=== PATIENT | male | born 1995 | race Caucasian/White ===

== ENCOUNTER 2020-09-15 16:46 | Outpatient (CLI) | payer BC, SELFPAY ==
--- NOTE | 2020-09-15 16:52 | ECG_ITS ---
Measurements Intervals [place] Rate: 70 P: 42 CA: 125 QRS: 84 QRSD: 92 T: 10 QT: 347 QTc: 376 Interpretive Statements SINUS RHYTHM BASELINE ARTIFACT- II, III, AVF NORMAL ECG Electronically Signed On 09-15-2020 18:09:20 CDT by Garry Bernstein D.O.
[2020-09-15 17:37] LABS: Basophils Absolute Auto 0.1 K/mm3 (0.0-0.1); Basophils Percent Auto 1.1 % (0.2-1.2); Eosinophils Absolute Auto 0.4 K/mm3 (0-0.3); Hematocrit 48.2 % (42.0-52.0); Hemoglobin 16.4 g/dL (14.0-18.0); Immature Granulocyte Absolute 0.01 K/mm3 (0.00-0.031); Immature Granulocyte Percent A 0.2 % (0-0.5); Lymphocytes Absolute Auto 2.01 K/mm3 (0.9-3.2); Mean Corpuscular Volume 88.1 fl (80-100); Mean Platelet Volume 8.9 fl (7.4-10.4); Monocytes Absolute Auto 0.6 K/mm3 (0.1-0.6); Monocytes Percent Auto 10.5 % (2.6-8.5); Neutrophils Absolute Auto 2.9 K/mm3 (1.3-6.7); Neutrophils Percent Auto 48.2 % (45.5-73.1); Platelet Count Result 460 k/mm3 (150-375); Red Blood Count 5.47 M/mm3 (4.6-6.20); Red Cell Distribution Width 12.1 % (11.5-14.5); White Blood Count 6.1 K/mm3 (4.5-10.0)
[2020-09-15 17:46] LABS: Anion Gap 8 mmol/L (8-16); Blood Urea Nitrogen 8 mg/dL (9-20); Calcium 9.7 mg/dL (8.4-10.2); Carbon Dioxide 30 mmol/L (22-30); Chloride 103 mmol/L (98-107); Estimated Glomerular Filt Rate > 60; Glucose 94 mg/dL (75-110); Potassium 4.5 mmol/L (3.4-5.0); Sodium 141 mmol/L (137-145)
== END 2020-09-15 16:47 | disposition home or self-care (01) ==
PROVIDERS: PCP Family Medicine; Visit Provider Nurse Practitioner Family
DX: R00.2 Palpitations (principal)
CPT/HCPCS: 36415; 80048; 84443; 85025; 93005

== ENCOUNTER 2020-09-21 10:33 | Outpatient (CLI) | payer BC, SELFPAY ==
--- NOTE | 2020-09-24 12:57 | WPDHOLTEREM ---
Holter/Event Monitor Holter/Event Monitor Date of procedure: 09/24/20 Holter/Event Procedure: 48 Hr Holter Monitor Indications: Palpitations Conclusion: 1. 48 hour holter monitor on 09/21/20. 2. Underlying rhythm is sinus rhythm. HR range 50-140 bpm; average HR 81 bpm. 3. There are 5 premature supraventricular complexes. No supraventricular tachycardia. 4. There are 1 premature ventricular complex and 1 ventricular triplet. No ventricular tachycardia. 5. No sinoatrial or atrioventricular blocks. No significant pauses greater than 2 seconds. 6. Patient reports symptom of heart racing which demonstrate sinus rhythm at 78 bpm.
== END 2020-09-21 10:34 | disposition home or self-care (01) ==
LOC: ANHCARD 10:35
PROVIDERS: PCP Family Medicine; Visit Provider Nurse Practitioner Family
DX: R00.2 Palpitations (principal)
CPT/HCPCS: 93225; 93226

== ENCOUNTER 2020-10-18 13:13 | Outpatient (CLI) | payer BC, SELFPAY ==
[2020-10-18 13:57] LABS: Hematocrit 46.4 % (42.0-52.0); Hemoglobin 15.7 g/dL (14.0-18.0); Mean Corpuscular HGB Conc 33.8 g/dl (32-36); Mean Corpuscular Hemoglobin 29.7 pg (26-34); Mean Corpuscular Volume 87.7 fl (80-100); Mean Platelet Volume 9.1 fl (7.4-10.4); Platelet Count Result 485 k/mm3 (150-375); Red Blood Count 5.29 M/mm3 (4.6-6.20); Red Cell Distribution Width 12.1 % (11.5-14.5); White Blood Count 6.1 K/mm3 (4.5-10.0)
== END 2020-10-18 13:14 | disposition home or self-care (01) ==
LOC: ANHLAB 13:17
PROVIDERS: PCP Family Medicine; Visit Provider Nurse Practitioner Family
DX: D69.6 Thrombocytopenia, unspecified (principal)
CPT/HCPCS: 36415; 85027

== ENCOUNTER 2020-11-26 12:15 | Outpatient (CLI) | payer BC, SELFPAY ==
[2020-11-26 12:57] LABS: Basophils Absolute Auto 0.1 K/mm3 (0.0-0.1); Basophils Percent Auto 0.8 % (0.2-1.2); Eosinophils Absolute Auto 0.3 K/mm3 (0-0.3); Eosinophils Percent Auto 4.1 % (0-4.4); Hematocrit 48.3 % (42.0-52.0); Hemoglobin 16.7 g/dL (14.0-18.0); Immature Granulocyte Absolute 0.01 K/mm3 (0.00-0.031); Immature Granulocyte Percent A 0.2 % (0-0.5); Lymphocytes Absolute Auto 1.79 K/mm3 (0.9-3.2); Lymphocytes Percent Auto 29.2 % (18.3-44.2); Mean Corpuscular HGB Conc 34.6 g/dl (32-36); Mean Corpuscular Hemoglobin 30.6 pg (26-34); Mean Corpuscular Volume 88.5 fl (80-100); Mean Platelet Volume 8.9 fl (7.4-10.4); Monocytes Absolute Auto 0.6 K/mm3 (0.1-0.6); Monocytes Percent Auto 9.8 % (2.6-8.5); Neutrophils Absolute Auto 3.4 K/mm3 (1.3-6.7); Neutrophils Percent Auto 55.9 % (45.5-73.1); Platelet Count Result 472 k/mm3 (150-375); Red Blood Count 5.46 M/mm3 (4.6-6.20); Red Cell Distribution Width 12.3 % (11.5-14.5); White Blood Count 6.1 K/mm3 (4.5-10.0)
[2020-11-26 13:18] LABS: Alanine Aminotransferase 69 U/L (4-50); Albumin Level 4.7 g/dL (3.5-5.1); Alkaline Phosphatase 66 U/L (38-126); Anion Gap 7 mmol/L (8-16); Aspartate Amino Transferase 41 U/L (17-59); Bilirubin,Total 0.6 mg/dL (0.2-1.3); Blood Urea Nitrogen 9 mg/dL (9-20); CRP < 0.5 mg/dL (<1.0); Calcium 9.9 mg/dL (8.4-10.2); Carbon Dioxide 29 mmol/L (22-30); Chloride 102 mmol/L (98-107); Estimated Glomerular Filt Rate > 60; Glucose 97 mg/dL (65-110); Potassium 4.3 mmol/L (3.4-5.0); Sodium 138 mmol/L (137-145)
[2020-11-26 13:54] LABS: Iron 116 ug/dL (49-181)
[2020-11-26 14:03] LABS: Percent Iron Saturation 36 % (20-50)
[2020-11-26 15:18] LABS: Erythrocyte Sedimentation Rate 3 mm/hr (0-20)
== END 2020-11-26 12:16 | disposition home or self-care (01) ==
LOC: ANHLAB 12:20
PROVIDERS: PCP Family Medicine; Visit Provider Internal Medicine Hematology & Oncology
DX: R79.89 Other specified abnormal findings of blood chemistry (principal)
CPT/HCPCS: 36415; 80053; 82728; 83540; 83550; 85025; 85652; 86140

== ENCOUNTER 2021-03-17 16:16 | Outpatient (CLI) | payer BC, SELFPAY ==
[2021-03-17 17:04] LABS: Basophils Absolute Auto 0.1 K/mm3 (0.0-0.1); Eosinophils Absolute Auto 0.4 K/mm3 (0-0.3); Eosinophils Percent Auto 6.9 % (0-4.4); Hematocrit 45.9 % (42.0-52.0); Hemoglobin 16.1 g/dL (14.0-18.0); Immature Granulocyte Absolute 0.01 K/mm3 (0.00-0.031); Immature Granulocyte Percent A 0.2 % (0-0.5); Lymphocytes Absolute Auto 1.95 K/mm3 (0.9-3.2); Lymphocytes Percent Auto 32.8 % (18.3-44.2); Mean Corpuscular HGB Conc 35.1 g/dl (32-36); Mean Corpuscular Volume 88.4 fl (80-100); Mean Platelet Volume 9.4 fl (7.4-10.4); Monocytes Absolute Auto 0.7 K/mm3 (0.1-0.6); Monocytes Percent Auto 11.6 % (2.6-8.5); Neutrophils Absolute Auto 2.8 K/mm3 (1.3-6.7); Neutrophils Percent Auto 47.5 % (45.5-73.1); Platelet Count Result 456 k/mm3 (150-375); Red Blood Count 5.19 M/mm3 (4.6-6.20); Red Cell Distribution Width 12.2 % (11.5-14.5); White Blood Count 5.9 K/mm3 (4.5-10.0)
[2021-03-17 17:26] LABS: Alanine Aminotransferase 40 U/L (4-50); Albumin Level 4.7 g/dL (3.5-5.1); Alkaline Phosphatase 74 U/L (38-126); Anion Gap 10 mmol/L (8-16); Aspartate Amino Transferase 36 U/L (17-59); Bilirubin,Total 0.4 mg/dL (0.2-1.3); Blood Urea Nitrogen 8 mg/dL (9-20); Calcium 9.5 mg/dL (8.4-10.2); Carbon Dioxide 27 mmol/L (22-30); Chloride 102 mmol/L (98-107); Estimated Glomerular Filt Rate > 60; Glucose 103 mg/dL (65-110); Potassium 3.9 mmol/L (3.4-5.0); Sodium 139 mmol/L (137-145)
== END 2021-03-17 16:17 | disposition home or self-care (01) ==
LOC: ANHLAB 16:19
PROVIDERS: PCP Family Medicine; Visit Provider Internal Medicine Hematology & Oncology
DX: D75.838 Other thrombocytosis (principal)
CPT/HCPCS: 36415; 80053; 85025

== ENCOUNTER 2024-01-29 10:45 | Outpatient (CLI) | payer OTHER, SELFPAY ==
[2024-01-29 11:15] LABS: Basophils Absolute Auto 0.1 K/mm3 (0.0-0.1); Basophils Percent Auto 0.8 % (0.2-1.2); Eosinophils Absolute Auto 0.3 K/mm3 (0-0.3); Eosinophils Percent Auto 3.3 % (0-4.4); Hematocrit 46.2 % (42.0-52.0); Hemoglobin 16.1 g/dL (14.0-18.0); Immature Granulocyte Absolute 0.03 K/mm3 (0.00-0.031); Immature Granulocyte Percent A 0.4 % (0-0.5); Lymphocytes Absolute Auto 1.53 K/mm3 (0.9-3.2); Lymphocytes Percent Auto 19.2 % (18.3-44.2); Mean Corpuscular HGB Conc 34.8 g/dl (32-36); Mean Corpuscular Hemoglobin 30.4 pg (26-34); Mean Corpuscular Volume 87.3 fl (80-100); Mean Platelet Volume 9.2 fl (7.4-10.4); Monocytes Absolute Auto 0.7 K/mm3 (0.1-0.6); Monocytes Percent Auto 8.5 % (2.6-8.5); Neutrophils Absolute Auto 5.4 K/mm3 (1.3-6.7); Neutrophils Percent Auto 67.8 % (45.5-73.1); Platelet Count Result 512 k/mm3 (150-375); Red Blood Count 5.29 M/mm3 (4.6-6.20)
[2024-01-29 11:35] LABS: Alanine Aminotransferase 36 U/L (6-50); Albumin Level 4.7 g/dL (3.5-5.1); Alkaline Phosphatase 69 U/L (38-126); Anion Gap 10 mmol/L (4-12); Aspartate Amino Transferase 28 U/L (17-59); Bilirubin,Total 0.6 mg/dL (0.2-1.3); Blood Urea Nitrogen 9 mg/dL (9-20); Calcium 9.2 mg/dL (8.4-10.2); Carbon Dioxide 26 mmol/L (22-30); Chloride 103 mmol/L (98-107); Cholesterol 188 mg/dL (0-200); Estimated Glomerular Filt Rate > 60; Glucose 93 mg/dL (65-110); HDL Direct 51 mg/dL; Sodium 139 mmol/L (137-145); Triglycerides 90 mg/dL (<150)
[2024-01-29 11:46] LABS: LDL Cholesterol Direct 104 mg/dL
[2024-01-29 11:58] LABS: Vitamin D 25 Hydroxy 27.5 ng/mL
[2024-01-29 12:38] LABS: Folic Acid 6.3 ng/mL (2.76->20)
== END 2024-01-29 10:46 | disposition home or self-care (01) ==
LOC: ANHLAB 10:48
PROVIDERS: PCP Family Medicine; Visit Provider Nurse Practitioner Adult Health
DX: Z00.00 Encounter for general adult medical examination without abnormal findings (principal); R00.0 Tachycardia, unspecified; R79.89 Other specified abnormal findings of blood chemistry; Z13.220 Encounter for screening for lipoid disorders; Z13.29 Encounter for screening for other suspected endocrine disorder
CPT/HCPCS: 36415; 80053; 80061; 82306; 82607; 82746; 84443; 85025

== ENCOUNTER → 2024-05-05 11:40 | Outpatient (REF) | payer OTHER, SELFPAY ==
--- OUTSIDE RECORDS SUMMARY | 2024-05-05 14:30 | XMS_ITS | Clinical Summary ---
Author Organization [facility] Address [address] [place] [address] Care Team Providers Care Auto Service Mechanic Name Role Phone Unknown, Provider Primary Care Provider Unavaila ble Source Comments [facility],non-owned Affiliates and Associated Physician Practices is amultiple site organization consisting of ambulatory clinics and hospital sitesin [place], [place], [place] and [place]. This disclosure is being madepursuant to the Care Everywhere program and may not contain all information available regarding this patient. Last updated 17.[facility] Allergies No known active allergies Medications Be aware that medications may not be up to date on this document. Always verify current medications with the patient. No known medications Social History Tobacco Use Types Packs/Day Years Used Date Smoking Tobacco: Never Sex and Gender Information Value Date Recorded Sex Assigned at Not on file Gender Identity Not on file Sexual Orientation Not on file Last Filed Vital Signs Vital Sign Reading Time Taken Comments Blood Pressure 116/60 01/17/2016 6:17 PM CDT Pulse 64 01/17/2016 6:17 PM CDT Temperature 36.9 C (98.4 F) 01/17/2016 6:17 PM CDT Respiratory Rate 16 01/17/2016 6:17 PM CDT Oxygen Saturation - - Inhaled Oxygen Concentration - - Weight 89.6 kg (197 lb 8 oz) 01/17/2016 6:17 PM CDT Height 184.2 cm (6' 0.5 ) 01/17/2016 6:17 PM CDT Body Mass Index 26.42 01/17/2016 6:17 PM CDT Plan of Treatment Health Maintenance Due Date Last Done Comments HIV SCREENING 2012 HPV VACCINE (1 - Male 3-dose series) 2012 HEPATITIS C SCREENING 11/23/2015 DTAP/TDAP/TD VACCINES (1 - Tdap) 2016 HEPATITIS B VACCINE (1 of 3 - 19+ 3-dose series) 2016 COVID-19 VACCINE (2023-2 5 season) 2023 INFLUENZA VACCINE (#1) 2023 DEPRESSION SCREENING 03/19/2024 ZOSTER VACCINE (1 of 2) 11/28/2047 HIB VACCINE Aged Out No longer eligi ble based on patient's age to complete this topic MENINGOCOCCAL (Group B) VACCINE Aged Out No longer eligible based on patient's age to complete this topic MENINGOCOCCAL VACCINE Aged Out No xochitl alan eligible based on patient's age to complete this topic PNEUMOCOCCAL VACCINE Aged Out No long er eligible based on patient's age to complete this topic Care Teams Auto Service Mechanic Relationship Specialty Start Date End Date Unknown, Provider PCP - General 01/17/16
--- OUTSIDE RECORDS SUMMARY | 2024-05-05 14:30 | XMS_ITS | Referral Summary ---
Author Organization [facility] Address [address] [place] [address] Care Team Providers Care Butter Production Supervisor Name Role Phone Unknown, Provider Primary Care Provider Unavaila ble Source Comments [facility],non-owned Affiliates and Associated Physician Practices is amultiple site organization consisting of ambulatory clinics and hospital sitesin [place], [place], [place] and [place]. This disclosure is being madepursuant to the Care Everywhere program and may not contain all information available regarding this patient. Last updated 17.[facility] Allergies No known active allergies Medications Be [...] 01/17/2016 6:17 PM CDT Plan of Treatment Not on file Care Teams Butter Production Supervisor Relationship Specialty Start Date End Date Unknown, Provider PCP - General 01/17/16
--- OUTSIDE RECORDS SUMMARY | 2024-05-05 14:30 | XMS_ITS | Clinical Summary ---
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 Family History Relation Name Status Comments Father Mother Alive Social History Tobacco Use Types Packs/Day Years Used Date Smoking Tobacco: Never Smokeless Tobacco: Never Alcohol Use Standard Drinks/Week Comments Never 0 (1 standard drink = 0.6 oz pur e alcohol) Sex and Gender Information Value Date Recorded Sex Assigned at Not on file Legal Sex Male 1:07 PM CDT Gender Identity Not on file Sexual Orientation Not on file Last Filed Vital Signs Vital Sign Reading Time Taken Comments Blood Pressure 136/80 11/26/2020 11:38 AM CDT Pulse 72 11/26/2020 11:38 AM CDT Temperature 36.9 C (98.4 F) 11/26/2020 11:38 AM CDT Respiratory Rate - - Oxygen Saturation 98% 11/26/2020 11: 38 AM CDT Inhaled Oxygen Concentration - - Weight 103.1 kg (227 lb 4.8 oz) 021 11:38 AM CDT Height 185.4 cm (6' 1 ) 11/26/2020 11:3 8 AM CDT Body Mass Index 29.99 11/26/2020 11:38 AM CDT Plan of Treatment Upcoming Encounters Date Type Department Care Team (Late st Contact Info) Description 05/21/2024 1:30 PM PRINTED CIRCUIT BOARD PREASSEMBLER Office Visit [facility] Oncology and Hematology - [place] [address] [facility] [address] [place] [address] Rigo Tamayo MD [address] [facility] [address] [place] [address] Health Maintenance Due Date Last Done Comments HPV VACCINES (1 - Male 3-dose series) 2012 DTAP/TDAP/TD VACCINES (1 - Tdap) 2016 HEPATITIS B VACCINES (1 of 3 - 19+ 3-dose series) 11/17 INFLUENZA VACCINE (#1) 2023 Insurance AETNA CHOICE POS II AETNA CHOICE POS II Care Teams Spray Dyer Relationship Specialty Start Date End Date Elian Hinton MD [address] [place] [address] PCP - General Family Practice 11/26/20
--- OUTSIDE RECORDS SUMMARY | 2024-05-05 14:30 | XMS_ITS | Patient Health Summary ---
Author Organization [facility] Address [address] [place] [address] Care Team Providers Care Pediatric Sports Medicine Specialist Name Role Phone Unknown, Provider Primary Care Provider Unavaila ble Note from [facility],non-owned Affiliates and Associated Physician Practices is amultiple site organization consisting of ambulatory clinics and hospital sitesin [place], [place], [place] and [place]. This disclosure is being madepursuant to the Care Everywhere program and may not contain all information available regarding this patient. Last updated 17.[facility] Allergies No known active allergies Medications Be [...] Mass Index 26.42 01/17/2016 6:17 PM CDT Care Teams Pediatric Sports Medicine Specialist Relationship Specialty Start Date End Date Unknown, Provider PCP - General 01/17/16
== END ==
LOC: ANHLAB 11:40
PROVIDERS: PCP Family Medicine; Visit Provider Plastic Surgery
DX: L72.0 Epidermal cyst (principal)
CPT/HCPCS: 88305

== ENCOUNTER 2024-05-21 14:29 | Outpatient (CLI) | payer OTHER, SELFPAY ==
[2024-05-21 15:20] LABS: Basophils Absolute Auto 0.1 K/mm3 (0.0-0.1); Basophils Percent Auto 0.8 % (0.2-1.2); Eosinophils Absolute Auto 0.4 K/mm3 (0-0.3); Eosinophils Percent Auto 5.9 % (0-4.4); Hematocrit 47.3 % (42.0-52.0); Hemoglobin 16.2 g/dL (14.0-18.0); Immature Granulocyte Absolute 0.01 K/mm3 (0.00-0.031); Immature Granulocyte Percent A 0.1 % (0-0.5); Lymphocytes Absolute Auto 2.07 K/mm3 (0.9-3.2); Lymphocytes Percent Auto 29.3 % (18.3-44.2); Mean Corpuscular HGB Conc 34.2 g/dl (32-36); Mean Corpuscular Hemoglobin 30.3 pg (26-34); Mean Corpuscular Volume 88.4 fl (80-100); Mean Platelet Volume 9.2 fl (7.4-10.4); Monocytes Absolute Auto 0.6 K/mm3 (0.1-0.6); Monocytes Percent Auto 8.8 % (2.6-8.5); Neutrophils Absolute Auto 3.9 K/mm3 (1.3-6.7); Neutrophils Percent Auto 55.1 % (45.5-73.1); Platelet Count Result 535 k/mm3 (150-375); Red Blood Count 5.35 M/mm3 (4.6-6.20); Red Cell Distribution Width 12.6 % (11.5-14.5); White Blood Count 7.1 K/mm3 (4.5-10.0)
[2024-05-21 16:12] LABS: Iron 112 ug/dL (49-181)
--- OUTSIDE RECORDS SUMMARY | 2024-05-21 16:13 | XMS_ITS | Referral Summary ---
Author Organization [facility] Address [address] [place] [address] Care Team Providers Care Net Architect Name Role Phone Unknown, Provider Primary Care Provider Unavaila ble Source Comments [facility],non-owned Affiliates and Associated Physician Practices is [facility] organization consisting of ambulatory clinics and hospital sitesin [place], [place] and [place]. This disclosure is being madepursuant to the Care Everywhere program and may not contain all information available regarding this patient. Last updated 17.[facility] Allergies No known active allergies Medications Be [...] of Treatment Not on file Care Teams Net Architect Relationship Specialty Start Date End Date Unknown, Provider PCP - General 01/17/16
--- OUTSIDE RECORDS SUMMARY | 2024-05-21 16:13 | XMS_ITS | Clinical Summary ---
Author Organization [facility] Address [address] [place] [address] Care Team Providers Care Photographer Model Name Role Phone Elian Hinton MD Primary Care Provider [phone] Allergies No known active allergies Medications pantoprazole (PROTONIX) 40 mg Tablet, Delayed Release (E.C.) Take 40 mg by mouth daily in the morning. 05/06/2024 Active sertraline (ZOLOFT) 50 mg tablet Take 1 Tablet by mouth daily. 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 Encounters Date Type Department Care Team Description 05/21/2024 1:30 PM LATEX THREAD MACHINE OPERATOR Office Visit [facility] Oncology and Hematology - [place] [address] [place] [phone] Rigo Tamayo MD Secondary thrombocytosis (Primary Dx); Chronic anemia from Last 3 Months Family History Relation Name Status Comments Father Mother Alive Social History Tobacco Use Types Packs/Day Years Used Date Smoking Tobacco: Never Smokeless Tobacco: Never Tobacco Cessation:Counseling Given: Not Answered Alcohol Use Standard Drinks/Week Comments Never 0 (1 standard drink = 0.6 oz pur e alcohol) Sex and Gender Information Value Date Recorded Sex Assigned at Not on file Legal Sex Male 1:07 PM CDT Gender Identity Not on file Sexual Orientation Not on file Last Filed Vital Signs Vital Sign Reading Time Taken Comments Blood Pressure 121/80 05/21/2024 1:04 PM LATEX THREAD MACHINE OPERATOR Pulse 69 05/21/2024 1:04 PM LATEX THREAD MACHINE OPERATOR Temperature 36.5 C (97.7 F) 05/21/2024 1:04 PM LATEX THREAD MACHINE OPERATOR Respiratory Rate 16 05/21/2024 1:04 PM LATEX THREAD MACHINE OPERATOR Oxygen Saturation 98% 05/21/2024 1:0 4 PM LATEX THREAD MACHINE OPERATOR Inhaled Oxygen Concentration - - Weight 116.7 kg (257 lb 3.2 oz) 05/21/2024 1:04 PM LATEX THREAD MACHINE OPERATOR Patient stated that this is the correct weight Height 185.4 cm (6' 1 ) 11/26/2020 11:3 8 AM CDT Body Mass Index 33.93 11/26/2020 11:38 AM CDT Plan of Treatment Upcoming Encounters Date Type Department Care Team (Late st Contact Info) Description 06/05/2024 4:00 PM CDT Telephone Check Up [facility] Oncology and Hematology - [place] [address] [facility] [address] [place] [address] Rigo Tamayo MD [address] [facility] [place] [address] Health Maintenance Due Date Last Done Comments HPV VACCINES (1 - Male 3-dose series) 2012 DTAP/TDAP/TD VACCINES (1 - Tdap) 2016 HEPATITIS B VACCINES (1 of 3 - 19+ 3-dose series) 11/17 INFLUENZA VACCINE (#1) 2023 Preventative Visit- Commercial 03/19/2024 Insurance AETNA CHOICE POS II AETNA CHOICE POS II Care Teams Photographer Model Relationship Specialty Start Date End Date Elian Hinton MD [address] [place] [address] PCP - General Family Practice 11/26/20
--- OUTSIDE RECORDS SUMMARY | 2024-05-21 16:13 | XMS_ITS | Patient Health Summary ---
Author Organization [facility] Address [address] [place] [address] Care Team Providers Care Pit And Auxiliaries Supervisor Name Role Phone Unknown, Provider Primary Care Provider Unavaila ble Note from [facility],non-owned Affiliates and Associated Physician Practices is amultiple site organization consisting of ambulatory clinics and hospital sitesin [place], [place], [place] and [place]. This disclosure is being madepursuant to the Care Everywhere program and may not contain all information available regarding this patient. Last updated 17.[facility] Allergies No known active allergies Medications Be [...] 26.42 01/17/2016 6:17 PM CDT Care Teams Pit And Auxiliaries Supervisor Relationship Specialty Start Date End Date Unknown, Provider PCP - General 01/17/16
--- OUTSIDE RECORDS SUMMARY | 2024-05-21 16:13 | XMS_ITS | Clinical Summary ---
Author Organization [facility] Address [address] [place] [address] Care Team Providers Care Laboratory Technology Teacher Name Role Phone Unknown, Provider Primary Care Provider Unavaila ble Source Comments [facility],non-owned Affiliates and Associated Physician Practices is amultiple site organization consisting of ambulatory clinics and hospital sitesin [place], [place], [place] and [place]. This disclosure is being madepursuant to the Care Everywhere program and may not contain all information available regarding this patient. Last updated 17.[facility] Allergies No known active allergies Medications Be [...] age to complete this topic Care Teams Laboratory Technology Teacher Relationship Specialty Start Date End Date Unknown, Provider PCP - General 01/17/16
--- OUTSIDE RECORDS SUMMARY | 2024-05-21 16:13 | XMS_ITS | Encounter Summary ---
Author Organization [facility] Address [address] [place] [address] Care Team Providers Care Thermal Cutter Helper Name Role Phone Elian Hinton MD Primary Care Provider [phone] Reason for Referral * Radiology Services (Routine) - Closed Specialty Diagnoses / Procedures Referred By Contac t Referred To Contact Diagnoses Secondary thrombocytosis Procedures US ABDOMEN COMPLETE Rigo Tamayo MD [address] [place] [phone] Phone: tel: fax: [place] [phone] Referral ID Status Reason Start Date Expiration Date V isits Requested Visits Authorized [id number] Closed ST[facility] CTS 05/21/2024 06/21/2025 1 1 Y REPAIRER * Laboratory Services (Routine) - Closed Specialty Diagnoses / Procedures Referred By Contac t Referred To Contact Diagnoses Secondary thrombocytosis Procedures [id number] MUTATION Rigo Tamayo MD [address] [place] [phone] Phone: tel: fax: Referral ID Status Reason Start Date Expiration Date Visits Re quested Visits Authorized [id number] Closed 05/21/2024 06/21/2025 1 1 Y REPAIRER Reason for Visit * Reason Comments Establish Care Encounter Details Date Type Department Care Team (Late st Contact Info) Description 05/21/2024 1:30 PM RELAY REPAIRER Office Visit [facility] Oncology and Hematology - [place] [address] [facility] [address] [place] [address] Rigo Tamayo MD [address] [facility] [address] [place] [address] Secondary thrombocytosis (Primary Dx); Chronic anemia Social History Tobacco Use Types Packs/Day Years [...] on file Sexual Orientation Not on file documented as of this encounter Last Filed Vital Signs Vital Sign Reading Time Taken Comments Blood Pressure 121/80 05/21/2024 1:04 PM RELAY REPAIRER Pulse 69 05/21/2024 1:04 PM RELAY REPAIRER Temperature 36.5 C (97.7 F) 05/21/2024 1:04 PM RELAY REPAIRER Respiratory Rate 16 05/21/2024 1:04 PM RELAY REPAIRER Oxygen Saturation 98% 05/21/2024 1:0 4 PM RELAY REPAIRER Inhaled Oxygen Concentration - - Weight 116.7 kg (257 lb 3.2 oz) 05/21/2024 1:04 PM RELAY REPAIRER Patient stated that this is the correct weight Height - - Body Mass Index 33.93 11/26/2020 11:38 AM CDT documented in this encounter Progress Notes * Rigo Tamayo MD - 05/21/2024 2:12 PM CST Hematology-oncology consult Note Requesting Physician Elian Hinton MD Primary Care Physician Elian Hinton MD Problem list Patient Active Problem List Diagnosis Code Secondary thrombocytosis D75.838 Elevated liver enzymes R74.8 Previous TREATMENT ? Measurable Disease ? Reason for Visit Reji Barrow is a 28 y.o. male who was referred for consultation for thrombocytosis. History of present illness This is a 28-year-old male who has been in good health found to have thrombocytosis initially in November 2020. He denies any bleeding and bruising. He denies any arthritis and rash. Denies any chest pain and shortness of breath. He has gained 30 pound weight in last 3 years duration. Hedenies any history of thromboembolic events including stroke and heart attack. No history of smoking. He has cyst removed from the neck about 3 weeks ago and recovering from the procedure. His labs done on January 2024 showed platelet count of 512,000. Back in November 2020 his labs showed platelet count of 485,000. He has no other new complaints. Past Medical History Past Medical History: Diagnosis Date Heart murmur Surgical History Past Surgical History: Procedure Laterality Date CYSTOURETHROSCOPY HX CIRCUMCISION HX WISDOM TEETH EXTRACTION Medications Current Outpatient Medications Medication Sig Dispense Refill pantoprazole (PROTONIX) 40 mg Tablet, Delayed Release (E.C.) Take 40 mg by mouth daily in the morning. sertraline (ZOLOFT) 50 mg tablet Take 1 Tablet by mouth daily. No current facility-administered medications for this visit. Allergies No Known Allergies Immunizations: There is no immunization history on file for this patient. Family History No family history on file. Social History Social History Tobacco Use Smoking status: Never Smokeless tobacco: Never Substance Use Topics Alcohol use: Never Review of Systems Constitutional: Patient did not mention fever; no night sweats; no anorexia; no weight loss; no fatique NEENT: Patient did not mention headache; no change in vision; no change in hearing; no sore throat;no dysphagia Respiratory: Patient did not mention shortness of breath; no pleuritic chest pain; no cough; no hemoptysis Cardiac: Patient did not mention cardiac-like chest pain; no palpitations; no orthopnea; no PND; noDOE GI: Patient did not mention abdominal pain; no nausea; no vomiting; no diarrhea; no hematochezia; no melena : Patient did not mention dysuria; no frequency; no hesitancy; no hematuria MANAGER PARTY: Musculosketetal: Patient did not mention bone pain; no arthralgia; no joint swelling; no myalgia; Skin: Patient did not mention pruritis; no rash; no petechiae; no ecchymoses Endocrine: Patient did not mention polydipsia; no polyuria; no unusual weight gain Neuro: Patient did not mention headache; no change in vision; no sensory changes; no muscle weakness; no confusion; no seizures Psych: Patient did not mention anxiety; no depression; Physical Exam Vitals: As per nursing note Constitutional: Well developed, well nourished, no acute distress, non-toxic appearance Teeth and gum. No signs of infection or swelling. Eyes: PERRL, conjunctiva normal HEENT: Atraumatic, external ears normal, nose normal, oropharynx moist, no pharyngeal exudates. no sinus tenderness Neck- normal range of motion, no tenderness, supple Respiratory: No respiratory distress, normal breath sounds, no rales, no wheezing Cardiovascular: Normal rate, normal rhythm, no murmurs, no gallops, no rubs GI: Soft, nondistended, normal bowel sounds, nontender, no splenomegaly, no hepatomegaly, no mass, no rebound, no guarding : No costovertebral angle tenderness Musculoskeletal: No edema, no tenderness, no deformities. Back- no tenderness Integument: Well hydrated, no rash, Digits and nails inspection normal Lymphatic: No lymphadenopathy noted Neurologic: Alert & oriented x 3, CN 2-12 normal, normal motor function, normal sensory function, no focal deficits noted Psychiatric: Speech and behavior appropriate ? labs No results found for this or any previous visit (from the past 24 hours). Labs from January 2024 showed WBC count 8.0 hemoglobin 16.1 hematocrit 46.2 platelet 512,000 Pathology ? Imaging & Other Studies Performance Status? Assessment / Plan: ? Thrombocytosis. Likely reactive. Patient is a pleasant 28-year-old slightly obese male who has been in good health referred to me for thrombocytosis. He developed thrombocytosis in November 2020. He denies any bleeding complaints. Denies any history of thromboembolic events. Current plate let count is 512,000. Previously in November 2020 platelet was 485,000. I have discussed the differential diagnosis of thrombocytosis with patient in detail. I will order the workup that will include CBC with differential, CMP, C-reactive protein, sedimentation rate, iron profile and JAK2 mutation. I will also order abdominal ultrasound. I will start him on baby aspirin once a day. No need for hydroxyurea at this time as long as platelet count is less than 600,000 as patient has no previous history of thromboembolic events. I recommended regular exercise and weight loss. I have answered all the questions to patient's satisfaction. Follow-up phone visit in 2 weeks. Thank you very much for allowing me to participate in Reji Barrow's evaluation and management. Please feel free to contact if I can be of any further assistance in your patient???s care requiring hematology or oncology evaluation. Sincerely, ? ? Rigo Tamayo M.D. cell TOBACCO COUNSELING He is not a tobacco/nicotine user. Rigo Tamayo MD ,05/21/2024 2:12 PM ? Total time spent 60 minutes, two third of the total time spent counseling patient [id number]. CC:?Elian Hinton MD Y REPAIRER documented in this encounter Plan of Treatment Upcoming Encounters Date Type Department Care Team (Late st Contact Info) Description 06/05/2024 4:00 PM CDT Telephone Check Up [facility] Oncology and Hematology [facility] [address] [facility] [address] [place] [address] Rigo Tamayo MD [address] [facility] [address] [place] [address] Scheduled Orders Name Type Priority Associated Diagnoses Orde r Schedule CBC WITH DIFFERENTIAL Lab Stat Chronic anemia Expected: 05/21/2024, Expires: 05/21/2025 COMPREHENSIVE METABOLIC PANEL Lab Stat Chronic anemia Expected: 05/21/2024, Expires: 05/21/2025 C-REACTIVE PROTEIN Lab Routine Chronic anemia Expected: 05/21/2024, Expires: 05/21/2025 SEDIMENTATION RATE Lab Routine Chronic anemia Expected: 05/21/2024, Expires: 05/21/2025 FERRITIN Lab Routine Chronic anemia Expected: 05/21/2024, Expires: 05/21/2025 IRON, TIBC, AND PERCENT SATURATION Lab Routine Chronic anemia Expected: 05/21/2024, Expires: 05/21/2025 JAK2 MUTATION Lab Routine Secondary thrombocytosis Expected: 05/21/2024, Expires: 05/21/2025 US ABDOMEN COMPLETE Imaging Routine Secondary thrombocytosis 1 Occurrences starting 05/21/2024 until 05/21/2025 documented as of this encounter Visit Diagnoses Diagnosis Secondary thrombocytosis- Primary Essential thrombocythemia Chronic anemia Anemia, unspecified documented in this encounter Care Teams Thermal Cutter Helper Relationship Specialty Start Date End Date Elian Hinton MD [address] [place] [address] PCP - General Family Practice 11/26/20 documented as of this encounter
[2024-05-21 16:15] LABS: Erythrocyte Sedimentation Rate 1 mm/hr (0-20)
[2024-05-21 16:16] LABS: Alanine Aminotransferase 51 U/L (6-50); Albumin Level 4.8 g/dL (3.5-5.1); Alkaline Phosphatase 81 U/L (38-126); Anion Gap 10 mmol/L (4-12); Aspartate Amino Transferase 32 U/L (17-59); Bilirubin,Total 0.5 mg/dL (0.2-1.3); Blood Urea Nitrogen 9 mg/dL (9-20); CRP < 0.5 mg/dL (<1.0); Calcium 9.6 mg/dL (8.4-10.2); Carbon Dioxide 29 mmol/L (22-30); Chloride 102 mmol/L (98-107); Estimated Glomerular Filt Rate > 60; Glucose 93 mg/dL (65-110); Potassium 4.2 mmol/L (3.4-5.0); Sodium 141 mmol/L (137-145)
[2024-05-21 16:23] LABS: Percent Iron Saturation 34 % (20-50)
== END 2024-05-21 14:30 | disposition home or self-care (01) ==
LOC: ANHLAB 14:32
PROVIDERS: PCP Family Medicine; Visit Provider Internal Medicine Hematology & Oncology
DX: D64.9 Anemia, unspecified (principal); D75.838 Other thrombocytosis
CPT/HCPCS: 36415; 80053; 81270; 82728; 83540; 83550; 85025; 85652; 86140

== ENCOUNTER 2024-05-31 07:40 | Outpatient (CLI) | payer OTHER, SELFPAY ==
--- NOTE | ~2024-05-31 | US_ITS ---
Abdominal Sonogram: Real-time sonographic imaging of the abdomen was performed. Clinical History: Secondary thrombocytopenia Findings: The liver appears normal with no evidence of mass lesion or bile duct dilatation. Main por raymond vein demonstrates normal direction of flow. The spleen is normal in size without evidence of foca l lesion. The gallbladder is well distended, and appears normal with no evidence of gallstone or wal l thickening. The common bile duct measures 4 mm. The visualized pancreas, aorta, and IVC are unrema rkable. The right kidney measures 11.9 cm in length and the left kidney measures 12.7 cm. There is no hydronephrosis or renal calculus. Impression: Unremarkable abdominal ultrasound. Reviewed, dictated and finalized at location . Impression: Unremarkable abdominal ultrasound.
--- OUTSIDE RECORDS SUMMARY | 2024-05-31 07:44 | XMS_ITS | Referral Summary ---
Author Organization [facility] Address [address] [place] [address] Care Team Providers Care Pantograph Watcher Name Role Phone Unknown, Provider Primary Care Provider Unavaila ble Source Comments [facility],non-owned Affiliates and Associated Physician Practices is amultiple site organization consisting of ambulatory clinics and hospital sitesin [place], [place], [place] and [place]. This disclosure is being madepursuant to the Care Everywhere program and may not contain all information available regarding this patient. Last updated 17.[facility] Allergies No known active allergies Medications Be [...] of Treatment Not on file Care Teams Pantograph Watcher Relationship Specialty Start Date End Date Unknown, Provider PCP - General 01/17/16
--- OUTSIDE RECORDS SUMMARY | 2024-05-31 07:44 | XMS_ITS | Patient Health Summary ---
Author Organization [facility] Address [address] [facility] [place] [address] Care Team Providers Care Applications Sales Representative Name Role Phone Unknown, Provider Primary Care Provider Unavaila ble Note from [facility],non-owned Affiliates and Associated Physician Practices is amultiple site organization consisting of ambulatory clinics and hospital sitesin [place], [place], [place] and [place]. This disclosure is being madepursuant to the Care Everywhere program and may not contain all information available regarding this patient. Last updated 17.[facility] Allergies No known active allergies Medications Be [...] 26.42 01/17/2016 6:17 PM CDT Care Teams Applications Sales Representative Relationship Specialty Start Date End Date Unknown, Provider PCP - General 01/17/16
--- OUTSIDE RECORDS SUMMARY | 2024-05-31 07:44 | XMS_ITS | Clinical Summary ---
Author Organization [facility] Address [address] [place] [address] Care Team Providers Care Logistics Manager Name Role Phone Elian Hinton MD Primary Care Provider [phone] Allergies No known active allergies Medications pantoprazole (PROTONIX) 40 mg Tablet, Delayed Release (E.C.) Take 40 mg by mouth daily in the morning. 05/06/2024 Active sertraline (ZOLOFT) 50 mg tablet Take 1 Tablet by mouth daily. 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 Encounters Date Type Department Care Team Description 05/27/2024 External Device Data [facility] ABSTRACTION Provider, Abstract 05/27/2024 External Device Data [facility] Provider, Abstract 05/26/2024 External Device Data [facility] Provider, Abstract 05/24/2024 External Device Data [facility] Provider, Abstract 05/23/2024 External Device Data [facility] ABSTRACTION Provider, Abstract 05/23/2024 Abstract [facility] - [place] [address] [place] [phone] Rigo Tamayo MD 05/22/2024 Orders Only [facility] - [place] [address] [place] [phone] Rigo Tamayo MD 05/21/2024 1:30 PM PIN MACHINE TENDER Office Visit [facility] - [place] [address] [place] [address] Rigo Tamayo MD Secondary thrombocytosis (Primary Dx); [...] Comments Blood Pressure 121/80 05/21/2024 1:04 PM PIN MACHINE TENDER Pulse 69 05/21/2024 1:04 PM PIN MACHINE TENDER Temperature 36.5 C (97.7 F) 05/21/2024 1:04 PM PIN MACHINE TENDER Respiratory Rate 16 05/21/2024 1:04 PM PIN MACHINE TENDER Oxygen Saturation 98% 05/21/2024 1:0 4 PM PIN MACHINE TENDER Inhaled Oxygen Concentration - - Weight 116.7 kg (257 lb 3.2 oz) 05/21/2024 1:04 PM PIN MACHINE TENDER Patient stated that this is the correct weight Height 185.4 cm (6' 1 ) 11/26/2020 11:3 8 AM CDT Body Mass Index 33.93 11/26/2020 11:38 AM CDT Plan of Treatment Upcoming Encounters Date Type Department Care Team (Late st Contact Info) Description 06/05/2024 4:00 PM CDT Telephone Check Up [facility] - [place] [address] [place] [phone] Rigo Tamayo MD [address] [place] [phone] Health Maintenance Due Date Last Done Comments HPV VACCINES (1 - Male 3-dose series) 2012 DTAP/TDAP/TD VACCINES (1 - Tdap) 2016 HEPATITIS B VACCINES (1 of 3 - 19+ 3-dose series) 11/17 INFLUENZA VACCINE (#1) 2023 Procedures Procedure Name Priority Date/Time Associated Diagnosis Comments COMPREHENSIVE METABOLIC PANEL Routine 05/21/2024 1:39 PM PIN MACHINE TENDER from Last 3 Months Results * COMPREHENSIVE METABOLIC PANEL (05/21/2024 1:39 PM PIN MACHINE TENDER) Blood Rigo Tamayo MD CHEMISTRY ORDERABLES Final Resu lt from Last 3 Months Insurance [employer] CHOICE POS II [employer] CHOICE POS II Care Teams Logistics Manager Relationship Specialty Start Date End Date Elian Hinton MD [address] [place] [address] PCP - General Family Practice 11/26/20
--- OUTSIDE RECORDS SUMMARY | 2024-05-31 07:44 | XMS_ITS | Clinical Summary ---
Author Organization [facility] Address [address] [facility] [place] [address] Care Team Providers Care Fluoroscope Operator Name Role Phone Unknown, Provider Primary Care Provider Unavaila ble Source Comments [facility],non-owned Affiliates and Associated Physician Practices is amultiple site organization consisting of ambulatory clinics and hospital sitesin [place], [place], [place] and [place]. This disclosure is being madepursuant to the Care Everywhere program and may not contain all information available regarding this patient. Last updated 17.[facility] Allergies No known active allergies Medications Be [...] - 19+ 3-dose series) 2016 COVID-19 VACCINE (1 - 2023-2 5 season) 2023 INFLUENZA VACCINE (#1) 2023 DEPRESSION SCREENING 03/19/2024 ZOSTER VACCINE (1 of 2) 11/28/2047 HIB VACCINE Aged Out No longer eligi ble based on patient's age to complete this topic MENINGOCOCCAL (Group B) VACC INE SHARED DECISION-MAKING Aged Out No longer eligibl e based on patient's age to complete this topic MENINGOCOCCAL GROUPS A/C/Y/W VACCINE Aged Out No longer eligible b ased on patient's age to complete this topic PNEUMOCOCCAL VACCINE Aged Out No long er eligible based on patient's age to complete this topic Care Teams Fluoroscope Operator Relationship Specialty Start Date End Date Unknown, Provider PCP - General 01/17/16
== END 2024-05-31 07:41 | disposition home or self-care (01) ==
PROVIDERS: PCP Family Medicine; Visit Provider Internal Medicine Hematology & Oncology
DX: D75.838 Other thrombocytosis (principal)
CPT/HCPCS: 76700